=== PATIENT | male | born 1980 | race Caucasian/White ===

== ENCOUNTER 2017-07-17 00:19 | Emergency (ER) | payer BC ==
[~2017-07-17] VITALS: Ht 170.2 cm; Wt 124.7 kg
[2017-07-17 00:34] VITALS: BP 168/106; Ht 170.2 cm; Wt 124.7 kg
== END 2017-07-17 03:36 | disposition left against medical advice (07) ==
LOC: ED 00:19
DX: Z53.21 Procedure and treatment not carried out due to patient leaving prior to being seen by health care provider (principal)

== ENCOUNTER 2017-07-17 04:50 | Emergency (ER) | payer BC ==
[~2017-07-17] VITALS: Ht 170.2 cm; Wt 124.7 kg
[2017-07-17 04:53] VITALS: Ht 170.2 cm; Wt 124.7 kg
[2017-07-17 07:03] VITALS: BP 150/105
== END 2017-07-17 07:03 | disposition home or self-care (01) ==
LOC: ED 04:50
DX: J40 Bronchitis, not specified as acute or chronic (principal)
CPT/HCPCS: J7620